=== PATIENT | male | born 1955 | race Caucasian/White ===

== ENCOUNTER 2019-01-17 10:02 | Outpatient (RCR) | payer MEDICARE, SELFPAY ==
--- NOTE | 2019-01-17 12:24 | HP.PTEVAL ---
Patient's Visit Information IMER ACOSTA is a 63 year old M referred to Physical Therapy by Liborio Monroe MD with a diagnosis of PRESENCE OF ARTIFICAL LEGS,BILATERAL COMPLETE ,PARTIAL. Date of Evaluation: 01/17/19 Physical Therapist: Humza Barrett PT, Cert MDT, OCS - Visit Plan Frequency: 2x /Week Duration: 4 Weeks Plan: PROGRESSIVE STRENGTHENING HIP/KNEE,CORE STRENGTH ,STRETCHING,GAIT/BALANCE TRAINING - Subjective Findings: This 63 y/o male presents to physical therapy bilateral amputations. Patient developed sepsis which causes DIC (disimulation antiagulation coagaltion) caused severe medical complication 2011,body shutting. Patient had BKA bilateral 2012. Patient was hospitalized for extensive stay.Patient most recently received new prothesis bilateral end of Sep 2018 ,but states new prothesis causes weakness/fatigue. Patient frustrated with current condition.Patient has extensive rehab in past. Patient new prothesis affects ability to walk and standing impairs ADL'S and housework tasks. Denies parathesia/tingling.Patient condition affects QOL and function. SOCIAL: . VOCATION: retired material handling warehouse supervisor - Pain Bilateral Lower Extremity Pain Intensity (Out of 10): 5 Pain Intensity Range: 10 Comment: amputee -walking - Objective POSTURE: mild foward posture,knees flexed with prothesis. PALAPTION: UNREMARKABLE. NEURO: ocassional left phantom pain. AROM:0-120 RIGHT,LEFT 0-105 knee flexion ,hip flexion 110 degrees bilateral ,IR 60 degrres,ER 35 degrees ,hip ext 30 degrees. MMT: quads/hams 4/5,hip flexion /abduction 4-/5,hip extension 4-/5. GAIT: ambulates with prothesis slight IR knees flexed reciprocal pattern. BALANCE : good - - Balance Scores CATSIB Score (Max score 120 seconds): 70 - Goals Goal 1:: Independant with HEP Goal Time Frame: 4-6 Weeks Goal 2:: Improve gait with new prothesis community distance with less fatigue and improved gait pattern Goal Time Frame: 4-6 Weeks Goal 3:: Decrease pain legs with walking and standing by 60% or greater to improve function. Goal Time Frame: 4-6 Weeks Goal 4:: Patient to improve hip strength 4/5 to improve gait. Goal Time Frame: 4-6 Weeks Goal 5:: Patient to improve LFES score by 5-10 points to improve function. Goal Time Frame: 4-6 Weeks - Rehabilitation Potential Physical Therapy Diagnosis: This patient has multiple comorbities along with bilateral BKA from sepsis causing BUD with current impairments with difficulty ambulating with new prothessis for any extensded periods of time with pain and weakess in hips and tight ER . Rehabilitation Potential: Good - Anticipated Interventions Patient/Client Instruction: Educate patient on: Condition, Plan of Care For the Purpose of:: To decrease pain, To increase ROM, To improve muscle performance and motor function, To improve ability to perform ADL's, To increase tolerance to activity/condition/position, To improve ability of physical actions for home/community/work/leisure, To improve gait and locomotor functions, To improve health of tissue, To increase flexibility/ROM, To improve ability to perform tasks related to life management Therapeutic Exercise to Include: Strength training, Endurance training, Balance training, Flexibilty training, Gait and locomotor training, Active ROM Comment: HIP/KNEES For the Purpose of:: To decrease pain, To increase ROM, To improve muscle performance and motor function, To increase tolerance to activity/condition/position, To improve ability of physical actions for home/community/work/leisure, To improve gait and locomotor functions, To improve health of tissue, To decrease soft tissue restriction, To increase flexibility/ROM, To reduce risk of recurrence, To improve ability to perform tasks related to life management Functional Training to Include: Gait training For the Purpose of:: To improve muscle performance and motor function, To improve ability of physical actions for home/community/work/leisure, To improve health of tissue, To decrease soft tissue restriction Thank you for the opportunity to evaluate your patient. For Medicare and Medicare HMO plans, please review the plan of care and approve it. It will need to be FAXED BACK to us at [phone] for Medicare purposes. For Medicare only, by signing this I certify the plan of care. Please let me know if there are questions or concerns regarding this plan of care. Physician Signature: Date:
== END 2019-01-17 19:00 | disposition home or self-care (01) ==
LOC: PT 10:02
DX: Z97.16 Presence of artificial legs, bilateral (complete) (partial) (principal); Z89.512 Acquired absence of left leg below knee; Z89.511 Acquired absence of right leg below knee; R29.898 Other symptoms and signs involving the musculoskeletal system
CPT/HCPCS: 97110; 97162

== ENCOUNTER 2021-09-22 09:30 | Outpatient (RCR) | payer MEDICARE, OTHER, SELFPAY ==
[2021-09-08 09:20] VITALS: BP 158/88; PULSE 89; RESP 16; BMI 28.7
--- NOTE | 2021-09-08 10:33 | PCM.WC.HP ---
History of Present Illness Date of Service: 09/08/21 Chief Complaint: Profound skin changes and irritation of the left below-knee amputation stump History of Wound: This is a 66-year-old male who presents with complaints of profound skin changes and drainage from his left below-knee amputation stump. Of note, the patient's history reveals that he suffered from sepsis in 2010, thought to be secondary to a pulmonary infection. As result of sepsis, the patient developed DIC (disseminated intravascular coagulation). This resulted in the need for bilateral below-knee amputation and amputations involving his left first, second, and third fingers, as well as the distal portion of his right thumb. Patient has remained relatively active, with the benefit of bilateral lower extremity prostheses. He has had recent problems with infections and drainage from his left below-knee amputation stump. He has recently been treated with 2 courses of oral Bactrim, and a course of oral doxycycline most recently. He wears his prosthetic limbs on a daily basis. He sleeps on a flat mattress at night. The patient is a former smoker. He suffers from anemia, hypertension, prostatism, and hyperlipidemia. [facility] Medical History (Updated 09/08/21 @ 10:[address] Jose Luis Goddard MD) Anemia Below-knee amputation of left lower extremity Below-knee amputation of right lower extremity Hyperlipidemia Hypertension Prostatism Skin irritation Home Medications ascorbic acid (vitamin C) [Vitamin C] mg PO 09/08/21 [History Last Taken Unknown] atorvastatin 30 mg PO QHS 09/08/21 [History Last Taken Unknown] cholecalciferol (vitamin D3) [Vitamin D3] mcg PO DAILY 09/08/21 [History Last Taken Unknown] metoprolol tartrate 20 mg PO DAILY 09/08/21 [History Last Taken Unknown] omega-3 fatty acids [Fish Oil] mg PO DAILY 09/08/21 [History Last Taken Unknown] saw palmetto mg PO 09/08/21 [History Last Taken Unknown] Allergy/AdvReac Type Severity Reaction Status Date / Time SEASONAL Allergy Other Uncoded 09/08/21 09:39 Social History Smoking Status: Former smoker Vital Signs Vital Signs Vital Signs: 09/08/21 09:20 Pulse Rate 89 Respiratory Rate 16 Blood Pressure 158/88 H Blood Pressure Mean 111 Blood Pressure Source Monitor Blood Pressure Position Sitting Blood Pressure Location Left Arm Oxygen Delivery Method Room Air Weight Weight: 200 lb Body Mass Index (BMI) 28.7 Physical Exam Const alert, oriented x3, no apparent distress and well nourished General Appearance: cooperative, comfortable, well kempt and well developed Orientation / Consciousness: awake, oriented to person, oriented to place and oriented to time HEENT normocephalic and head/scalp atraumatic Head and Scalp: normal to inspection, normocephalic and atraumatic External Ear: external ears normal Eyes PERRL and EOMs intact bilaterally General Eye: normal appearance of both eyes Resp normal respiratory effort, normal air movement, no retractions and no use of accessory muscles Effort and Inspection: able to speak in complete sentences Extremity no calf tenderness Extremity Narrative: Bilateral below-knee amputation stumps are noted. The distal portion of the left first, second, and third fingers in the right thumb are missing. General Extremity: Negative for clubbing or cyanosis Skin Wound Narrative: The right below-knee amputation stump is well-healed, and devoid of wounds, ulcerations, or significant skin changes. The left below-knee amputation stump is devoid of open wounds or ulcerations. However, there are some profound skin changes, with hypertrophic areas of epithelium, with vast areas of crevices and folds. There is no obvious sign of infection or cellulitis. There is no drainage. Neuro oriented x3, CN's II-XII intact bilaterally and moves all extremities Psych Appearance: grossly normal and appropriate Attitude: calm Activity / Motor Behavior: appropriate eye contact Speech: normal speech Mood & Affect: euthymic mood Thought Process: normal thought process Thought Content: normal thought content Attention / Concentration: attention grossly intact Debridement Note Debridement Note No debridement was completed: No debridement was completed today Post-Debridement Measurements and Additional Note: Post-Debridement Measurements/Treatment DANNY - Nurse 1 - General Ulcer Assessment Start: 09/08/21 09:20 Freq: Status: Active Protocol: ELIZABETH Activity Type Activity Date Activity User E-Sign Co-Sign Detail Recorded Client Recorded Date Recorded By Document 09/08/21 09:20 [facility] [id number] 09/08/21 09:34 [facility] 09/08/21 09:20 - Today's Visit Information Type of service Initial Visit Arrival Mode Ambulatory,Cane Transfer Assistance None Patient Identification Verified (Name & Yes ) Patient Requires Transmission-Based No Precautions Height and Weight Height 5 ft 10 in Weight 200 lb Weight in Pounds 200.0 lbs Weight Measurement Method Estimated by Patient Body Mass Index (BMI) 28.7 BMI Classification Overweight BSA - Arun 2.09 Vital Signs Pulse Rate (60-100) 89 Pulse Location Monitor Respiratory Rate (12-18) 16 Respiratory rate source Observation Oxygen Delivery Method Room Air Blood Pressure (90/60-120/80) 158/88 H Blood Pressure Mean 111 Source Monitor Position Sitting Blood Pressure Location Left Arm History Since Last Visit- (Skip if this is Patient's initial visit) Left Footwear Other Footwear (Comment) Right Footwear Other Footwear (Comment) Other Footwear BLE PROSTHETICS Pain Scale: 0-10 Numeric Is Patient Pain Free? Yes Communication Assessment Preferred language Malay Set Off Blocker Required No Able to Read Yes Able to Write Yes Communication Tools None Right Hearing Abillity Hard of Hearing Left Hearing Abillity Hard of Hearing Visual Assistive Devices None Teaching Assessment Preferences Verbal,Written, Audio/Visual, Demonstration Barriers to Learning None Readiness To Learn Excellent Willingness to Engage in Self Management High Activies Readiness to Engage in Self Management High Activities Anxiety Level Calm Cooperation Cooperative Perception Coherent Interest in Health Problem Asks Questions Education Importance Acknowledges Need Does Patient Smoke tobacco or other No substances Smoking Status Former smoker Is Patient Diabetic No Culture/Congregation/Director [employer] Cultural/Congregation Needs that may affect No Treatment Plan WC - Nurse 1 - General Ulcer Measurement Start: 09/08/21 09:20 Freq: Status: Active Protocol: Activity Type Activity Date Activity User E-Sign Co-Sign Detail Recorded Client Recorded Date Recorded By Document 09/08/21 09:20 [facility] [id number] 09/08/21 09:34 [facility] 09/08/21 09:20 Wound Center Nurse 1 #1- L STUMP -Combined with other wound No -Current Size (cm) - Length 0.1 -Current Size (cm) - Width 0.1 -Current Size (cm) - Depth 0.1 -Total Square Cm 0.01 -Date of Last Picture (Recall this 09/08/21 field) -Photo Taken Yes -Epithelialization None Present -Tunneling No -Undermining/Tunneling No -Circular Undermining No -Texture (Gretchen-wound Skin Appearance) Assessed -Moisture (Gretchen-wound Skin Appearance) Assessed, Maceration -Color (Gretchen-wound Skin Appearance) Assessed, Erythema -Temperature (Gretchen-wound Skin No Abnormality Appearance) (Pt Warm) -Tenderness on Palpation (Gretchen-wound No Skin Appearance) -Ulcer Cleansing Soap and Water -Foul Odor after Cleansing No Assessment/Plan Assessment/Plan (1) Skin irritation: CODE(S): R23.8 - Other skin changes (2) Below-knee amputation of right lower extremity: CODE(S): S88.111A - Complete traumatic amputation at level between knee and ankle, right lower leg, initial encounter (3) Below-knee amputation of left lower extremity: CODE(S): S88.112A - Complete traumatic amputation at level between knee and ankle, left lower leg, initial encounter (4) Hypertension: CODE(S): I10 - Essential (primary) hypertension (5) Anemia: CODE(S): D64.9 - Anemia, unspecified (6) Prostatism: CODE(S): N40.0 - Benign prostatic hyperplasia without lower urinary tract symptoms (7) Hyperlipidemia: CODE(S): E78.5 - Hyperlipidemia, unspecified PLAN: This is a 66-year-old male who required bilateral below-knee amputations approximately 10 years ago as result of sepsis which developed into disseminated intravascular coagulation. He presents with severe skin changes involving his left below-knee amputation stump. He provides a history of serous drainage from the site. He wears bilateral prosthetic limbs daily. It appears as though the drainage from the left below-knee amputation stump moistens has prosthesis, particularly the fabric adjacent to the skin. This prolonged exposure to moisture appears to have resulted in some skin changes, with irregularities and crevices. There are no open wounds or ulcerations. There does not appear to be cellulitis. We have provided recommendations. Patient has been urged to avoid the use of his left lower extremity prosthesis as much as possible. Left lower extremity elevation, above heart level, has been recommended as much as possible, even during daytime hours. The use of a stump bullet maker has also been recommended, in collaboration with his prosthetists, Yang, has been recommended. The patient is to return in 2 weeks for reevaluation. Total time: 50 minutes
[2021-09-22 09:32] VITALS: BP 146/72; PULSE 74; RESP 16; TEMP 36.4; BMI 28.7
--- NOTE | 2021-09-22 14:11 | HP.PCM_ITS ---
History of Present Illness Date of Service: 09/22/21 Chief Complaint: Profound skin changes and irritation of the left below-knee amputation stump History of Wound: This is a 66-year-old male who presents with complaints of profound skin changes and drainage from his left below-knee amputation stump. Of note, the patient's history reveals that he suffered from sepsis in 2010, thought to be secondary to a pulmonary infection. As result of sepsis, the patient developed DIC (disseminated intravascular coagulation). This resulted in the need for bilateral below-knee amputation and amputations involving his left first, second, and third fingers, as well as the distal portion of his right thumb. Patient has remained relatively active, with the benefit of bilateral lower extremity prostheses. He has had recent problems with infections and drainage from his left below-knee amputation stump. He has recently been treated with 2 courses of oral Bactrim, and a course of oral doxycycline most recently. He wears his prosthetic limbs on a daily basis. He sleeps on a flat mattress at night. The patient is a former smoker. He suffers from anemia, hypertension, prostatism, and hyperlipidemia. [facility] Medical History Anemia Below-knee amputation of left lower extremity Below-knee amputation of right lower extremity Hyperlipidemia Hypertension Prostatism Skin irritation Home Medications ascorbic acid (vitamin C) [Vitamin C] mg PO 09/08/21 [History Last Taken Unknown] atorvastatin 30 mg PO QHS 09/08/21 [History Last Taken Unknown] cholecalciferol (vitamin D3) [Vitamin D3] mcg PO DAILY 09/08/21 [History Last Taken Unknown] metoprolol tartrate 20 mg PO DAILY 09/08/21 [History Last Taken Unknown] omega-3 fatty acids [Fish Oil] mg PO DAILY 09/08/21 [History Last Taken Unknown] saw palmetto mg PO 09/08/21 [History Last Taken Unknown] Allergy/AdvReac Type Severity Reaction Status Date / Time SEASONAL Allergy Other Uncoded 09/08/21 09:39 Social History Smoking Status: Former smoker Vital Signs Vital Signs Vital Signs: 09/22/21 09:32 Temperature 97.6 F L Temperature Source Temporal Pulse Rate 74 Respiratory Rate 16 Blood Pressure 146/72 H Blood Pressure Mean 96 Blood Pressure Source Monitor Blood Pressure Position Sitting Blood Pressure Location Left Arm Oxygen Delivery Method Room Air Weight Weight: 200 lb Body Mass Index (BMI) 28.7 Physical Exam Const alert, oriented x3, no apparent distress and well nourished General Appearance: cooperative and well developed Orientation / Consciousness: awake, oriented to person, oriented to place and oriented to time HEENT normocephalic and head/scalp atraumatic Head and Scalp: normal to inspection, normocephalic and atraumatic External Ear: external ears normal Eyes PERRL and EOMs intact bilaterally General Eye: normal appearance of both eyes Resp normal respiratory effort, normal air movement, no retractions and no use of accessory muscles Effort and Inspection: able to speak in complete sentences Extremity no calf tenderness Extremity Narrative: Bilateral below-knee amputation stumps are noted. Portions of fingers on both hands are missing. General Extremity: Negative for clubbing or cyanosis Skin Wound Narrative: The patient initially presented for evaluation relative to his left below-knee amputation stump. At this juncture, as noted at the initial appointment, there are no open wounds or ulcerations. Currently there is no significant swelling or edema. There are multiple clefts and creases at the distal portion of his left below-knee amputation stump. There is slight erythema, which appears inflammatory rather than cellulitic. There is no obvious drainage or moisture at the site. There is no odor. Neuro oriented x3 and CN's II-XII intact bilaterally Sensorium / Orientation: awake, alert, oriented to person, oriented to place and oriented to time Psych Appearance: grossly normal and appropriate Attitude: calm Activity / Motor Behavior: appropriate eye contact Speech: normal speech Mood & Affect: euthymic mood Thought Process: normal thought process Thought Content: normal thought content Attention / Concentration: attention grossly intact Debridement Note Debridement Note No debridement was completed: No debridement was completed today Assessment/Plan Assessment/Plan (1) Skin irritation: CODE(S): R23.8 - Other skin changes (2) Below-knee amputation of left lower extremity: CODE(S): S88.112A - Complete traumatic amputation at level between knee and ankle, left lower leg, initial encounter (3) Hyperlipidemia: CODE(S): E78.5 - Hyperlipidemia, unspecified (4) Prostatism: CODE(S): N40.0 - Benign prostatic hyperplasia without lower urinary tract symptoms (5) Anemia: CODE(S): D64.9 - Anemia, unspecified (6) Hypertension: CODE(S): I10 - Essential (primary) hypertension (7) Below-knee amputation of right lower extremity: CODE(S): S88.111A - Complete traumatic amputation at level between knee and ankle, right lower leg, initial encounter PLAN: This is a 66-year-old male who required bilateral below- knee amputations approximately 10 years ago as result of sepsis which developed into disseminated intravascular coagulation. He presented with severe skin changes involving his left below-knee amputation stump. He provides a history of serous drainage from the site. He wears bilateral prosthetic limbs daily. It appears as though the drainage from the left below-knee amputation stump moistens the liner of his prosthesis prosthesis, against which his skin remains throughout a good part of the day. As result, it is suspected that his skin is becoming macerated. This likely accounts for the redness and erythema. Cellulitis is not suspected. There is suspicion that his liner and the cup to his prosthesis is milking fluid from his amputation stump. The fluid then accumulates, and his skin remains within this moist environment throughout the day. Furthermore, the many crevices and cavities at the skin surface harbor the moisture, creating a favorable environment for bacterial growth. This is likely the cause of some odor which the patient notes when he removes his prosthetic limb. There are no open wounds or ulcerations, so the patient is to be discharged. The milking phenomenon from his sleeve and prosthetic limb is likely the cause of his skin irritation. We have recommended that the patient seek consultation with an experienced deck and hull assembler, who can likely address the problem. The patient appears to understand our presumed suspicions, and agrees to seek consultation with a deck and hull assembler. Our staff will make efforts to assist the patient in this process. Patient will follow-up henceforth on an as-needed basis. The patient has been advised to avoid use of the left lower extremity prosthesis as much as possible to minimize the accumulation of fluid adjacent to the skin, at least until consultation with a deck and hull assembler can be undertaken. Left lower extremity elevation, above heart level, has been recommended as much as possible, even during daytime hours. Total time: 29 minutes
== END 2021-09-22 11:05 | disposition home or self-care (01) ==
LOC: WC 09:30
PROVIDERS: PCP Family Medicine; Visit Provider Surgery
DX: R23.8 Other skin changes (principal); S88.112A Complete traumatic amputation at level between knee and ankle, left lower leg, initial encounter; S88.111A Complete traumatic amputation at level between knee and ankle, right lower leg, initial encounter; E78.5 Hyperlipidemia, unspecified; N40.0 Benign prostatic hyperplasia without lower urinary tract symptoms; D64.9 Anemia, unspecified; I10 Essential (primary) hypertension; Z79.899 Other long term (current) drug therapy; Z87.891 Personal history of nicotine dependence; Z89.512 Acquired absence of left leg below knee
CPT/HCPCS: 99213; G0463